=== PATIENT | male | born 1945 | race Caucasian/White ===

== ENCOUNTER → 2017-02-01 | Day surgery (SDC) | payer OTHER ==
[2017-01-28 10:38] LABS: Basophils # (auto) 0.1 uL; Basophils % (auto) 0.8 % (0.0-2.0); CONDITION Y; Eosinophils # (auto) 0.2 uL; Eosinophils % (auto) 2.4 % (0.0-7.0); Hematocrit 38.6 % (41.0-53.0); Hemoglobin 12.8 g/dL (13.5-17.5); Lymphocytes % (auto) 27.6 % (10.0-50.0); Mean Corpuscular Hemoglobin 29.8 pg (28.0-32.0); Mean Corpuscular Volume 90.2 fL (80.0-100.0); Mean Platelet Volume 10.9 fL (7.4-10.4); Monocytes # (auto) 0.5 uL; Monocytes % (auto) 6.3 % (0.0-12.0); Neutrophils # (auto) 4.5 uL; Neutrophils % (auto) 62.9 % (37.0-80.0); Platelet Count (auto) 229 10^3/uL (140-450); Red Cell Distribution Width 16.8 % (11.6-16.0); White Blood Cell 7.2 10^3/uL (4.4-10.8)
[2017-01-28 10:41] LABS: Urine Bilirubin Negative (Negative); Urine Blood Negative /uL (Negative); Urine Color Yellow (Yellow); Urine Glucose Normal (Normal); Urine Ketone Negative (Negative); Urine Mucus FEW (None Seen); Urine Nitrite Negative (Negative); Urine RBC 1 /hpf (0 - 3); Urine Urobilinogen Normal (Negative); Urine pH 5.5 (5.0-8.0)
[2017-01-28 10:51] LABS: INR 0.87 (0.9-1.15); Partial Thromboplastin Time 28.4 sec (22.64-33.71); Prothrombin Time 9.5 sec (9.37-12.3)
[2017-01-28 10:53] LABS: BUN/Creatinine Ratio 20.6; Calcium 8.9 mg/dL (8.5-10.1); Potassium 3.6 mmol/L (3.5-5.1)
[~2017-02-01] VITALS: Ht 175.3 cm; Wt 108.9 kg
[~2017-02-01] MED LIST: DEXAMETHASONE SOD PHOS 10MG/1ML VIAL INJ ONE; GLYCOPYRROLATE 0.2 MG/ML 1ML VIAL ONE; METHYLENE BLUE 0.5% 5MG/ML 10ml AMP IV ONE; METOCLOPRAMIDE HCL 5MG/ml INJ 2ml VIAL ONE; MIDAZOLAM HCL 1MG/1ML-2 ML VIAL ONE; MORPHINE SULF INJ 2 MG/ML SYRINGE 1ML IV PRN; NEOSTIGMINE 1 MG/ML INJ (10mg/10ML VIAL) ONE; ONDANSETRON HCL 4 MG/2 ML VIAL IV ONE; ONDANSETRON HCL 4 MG/2 ML VIAL ONE; PROPOFOL 10 MG/ML 20 ML IV ONE; ROCURONIUM 10MG/ML 10ML VIAL IV ONE; ceFAZolin 1GM VL ONE; ceFAZolin 1GM/50ML D5W 50 ML IV ONE; fentaNYL CITRATE 100 MCG/2 ML VL IV PRN; fentaNYL CITRATE 100 MCG/2 ML VL ONE; hydrALAZINE HCL 20 MG/ML VL IV PRN
[2017-02-01 17:45] VITALS: BP 152/92
== END | disposition home or self-care (01) ==
LOC: SUR 11:57
PROVIDERS: ATTEND Urology
DX: N40.1 Benign prostatic hyperplasia with lower urinary tract symptoms (principal)
CPT/HCPCS: 36415; 52601; 80048; 81001; 85025; 85610; 85730; 87086; J0690; J1100; J2250; J2405; J2704; J2765; J3010; Q9968

== ENCOUNTER 2023-03-22 06:15 | Inpatient (IN) | payer OTHER ==
[~2023-03-22] VITALS: Ht 167.6 cm; Wt 94.5 kg
[2023-03-22] VITALS (8 sets, daily range): BP systolic 97–127; BP diastolic 52–75; PULSE 64–82; RESP 10–18; TEMP 97.8–98.2; O2SAT 96–100
[~2023-03-22 06:15] MED LIST changes: +AMLO1TAB21 PO; -DEXAMETHASONE SOD PHOS 10MG/1ML VIAL INJ ONE; -GLYCOPYRROLATE 0.2 MG/ML 1ML VIAL ONE; -METHYLENE BLUE 0.5% 5MG/ML 10ml AMP IV ONE; -METOCLOPRAMIDE HCL 5MG/ml INJ 2ml VIAL ONE; -MIDAZOLAM HCL 1MG/1ML-2 ML VIAL ONE; -MORPHINE SULF INJ 2 MG/ML SYRINGE 1ML IV PRN; -NEOSTIGMINE 1 MG/ML INJ (10mg/10ML VIAL) ONE; -ONDANSETRON HCL 4 MG/2 ML VIAL IV ONE; -ONDANSETRON HCL 4 MG/2 ML VIAL ONE; -PROPOFOL 10 MG/ML 20 ML IV ONE; -ROCURONIUM 10MG/ML 10ML VIAL IV ONE; -ceFAZolin 1GM VL ONE; -ceFAZolin 1GM/50ML D5W 50 ML IV ONE; -fentaNYL CITRATE 100 MCG/2 ML VL IV PRN; -fentaNYL CITRATE 100 MCG/2 ML VL ONE; -hydrALAZINE HCL 20 MG/ML VL IV PRN
[2023-03-22] MEDS ORDERED: MIDAZOLAM HCL 2MG/2ML 2ml VIAL (1mg/ml) ONE (07:42)
[2023-03-22] MEDS ORDERED: fentaNYL CITRATE 5 ML ONE (07:42)
[2023-03-22] MEDS ORDERED: ONDANSETRON HCL 4 MG/2 ML VIAL ONE (08:26)
[2023-03-22] MEDS ORDERED: LIDOCAINE 2% (LOCAL ANESTH.) PF 5ml SDV ONE (08:26)
[2023-03-22] MEDS ORDERED: GLYCOPYRROLATE 0.2 MG/ML 1ML VIAL ONE (08:27)
[2023-03-22] MEDS ORDERED: PROPOFOL 10 MG/ML 20 ML IV ONE (08:27)
[2023-03-22] MEDS ORDERED: ROCURONIUM 10MG/ML 10ML VIAL IV ONE (08:27)
[2023-03-22] MEDS ORDERED: ePHEDrine SULFATE 50 MG/ML AMP IV PRN (09:00)
[2023-03-22] MEDS ORDERED: HYDROmorphone HCL 2 MG/ML VL/or syr IV PRN (09:00)
[2023-03-22] MEDS ORDERED: ONDANSETRON HCL 4 MG/2 ML VIAL IV PRN ×2 (09:00→18:00)
[2023-03-22] MEDS ORDERED: NITROGLYCERIN 0.4 MG SL TAB SL PRN ×2 (10:15→18:00)
[2023-03-22] MEDS ORDERED: MORPHINE SULFATE INJ 2 MG/ml SYRG IV PRN ×2 (10:15→18:00)
[2023-03-22] MEDS ORDERED: SUCCINYLCHOLINE CHLORIDE 20 MG/ML 10ML VIAL IV ONE (11:28)
[2023-03-22 12:22] LABS: Basophils # (auto) 0.1 10 ^3/uL (0-0.2); Basophils % (auto) 1.1 % (0.0-2.0); Eosinophils # (auto) 0.2 10 ^3/uL (0-0.8); Eosinophils % (auto) 2.5 % (0.0-7.0); Hemoglobin 12.9 g/dL (13.5-17.5); Mean Corpuscular Hemoglobin 29.5 pg (28.0-32.0); Mean Corpuscular Hgb Conc. 33.1 g/dL (32.0-36.0); Mean Corpuscular Volume 89.2 fL (80.0-100.0); Monocytes # (auto) 0.7 10 ^3/uL (0-1.3); Monocytes % (auto) 9.3 % (0.0-12.0); Neutrophils # (auto) 4.5 10 ^3/uL (1.6-8.6); Neutrophils % (auto) 60.1 % (37.0-80.0); Nucleated Red Blood Cells % 0.1 %; Red Blood Cells 4.37 10^6/uL (4.5-5.90); Red Cell Distribution Width 14.4 % (11.8-14.3); White Blood Cell 7.5 10^3/uL (4.4-10.8)
[2023-03-22] MEDS ORDERED: CIPR500T4 PO (15:19)
[2023-03-22] MEDS ORDERED: AMLO1TAB21 PO (15:28)
[2023-03-22] MEDS ORDERED: hydrALAZINE HCL 20 MG/ML VL IV PRN (18:00)
[2023-03-22] MEDS: cefTRIAXone 1GM/50ML D5W 50 ML IV SCH (18:01)
[2023-03-23] VITALS (13 sets, daily range): BP systolic 100–132; BP diastolic 43–73; PULSE 63–80; RESP 12–15; TEMP 97.6–99.1; O2SAT 63–99
[2023-03-23 05:33] LABS: Basophils # (auto) 0.1 10 ^3/uL (0-0.2); Basophils % (auto) 0.9 % (0.0-2.0); Eosinophils # (auto) 0.3 10 ^3/uL (0-0.8); Eosinophils % (auto) 2.2 % (0.0-7.0); Hematocrit 30.3 % (41.0-53.0); Hemoglobin 9.9 g/dL (13.5-17.5); Lymphocytes # (auto) 0.8 10 ^3/uL (0.4-5.4); Lymphocytes % (auto) 6.8 % (10.0-50.0); Mean Corpuscular Hemoglobin 29.1 pg (28.0-32.0); Mean Corpuscular Hgb Conc. 32.8 g/dL (32.0-36.0); Mean Corpuscular Volume 88.7 fL (80.0-100.0); Monocytes # (auto) 0.7 10 ^3/uL (0-1.3); Neutrophils # (auto) 10.2 10 ^3/uL (1.6-8.6); Neutrophils % (auto) 84.1 % (37.0-80.0); Red Blood Cells 3.41 10^6/uL (4.5-5.90); Red Cell Distribution Width 14.2 % (11.8-14.3); White Blood Cell 12.1 10^3/uL (4.4-10.8)
[2023-03-23 05:38] LABS: Chloride 109 mmol/L (98-107); Potassium 4.1 mmol/L (3.5-5.1); Sodium 141 mmol/L (136-145)
[2023-03-23 05:39] LABS: Anion Gap 3 (5-15); Calcium 8.2 mg/dL (8.7-10.4); Carbon Dioxide 29 mmol/L (20-30)
[2023-03-23 05:44] LABS: BUN/Creatinine Ratio 17.1 (10.0-20.0); Blood Urea Nitrogen 21 mg/dL (9-23); Glucose 106 mg/dL (74-106)
[2023-03-23] MEDS: cefTRIAXone 1GM/50ML D5W 50 ML IV SCH (09:03)
[2023-03-23] MEDS: DOCUSATE SOD 100 MG CAP PO PRN (09:03)
[2023-03-23] MEDS ORDERED: HYDROcodone-ACET 5/325MG TAB PO PRN (12:30)
[2023-03-24] VITALS (16 sets, daily range): BP systolic 111–148; BP diastolic 56–84; PULSE 58–80; RESP 11–19; TEMP 98.3–99; O2SAT 95–100
[2023-03-24 05:14] LABS: Basophils # (auto) 0.1 10 ^3/uL (0-0.2); Basophils % (auto) 0.4 % (0.0-2.0); Eosinophils # (auto) 0.4 10 ^3/uL (0-0.8); Eosinophils % (auto) 3.5 % (0.0-7.0); Hematocrit 30.1 % (41.0-53.0); Hemoglobin 9.4 g/dL (13.5-17.5); Lymphocytes # (auto) 0.9 10 ^3/uL (0.4-5.4); Lymphocytes % (auto) 7.5 % (10.0-50.0); Mean Corpuscular Hemoglobin 29.2 pg (28.0-32.0); Mean Corpuscular Hgb Conc. 31.4 g/dL (32.0-36.0); Mean Corpuscular Volume 93.1 fL (80.0-100.0); Monocytes # (auto) 0.9 10 ^3/uL (0-1.3); Monocytes % (auto) 7.9 % (0.0-12.0); Neutrophils # (auto) 9.4 10 ^3/uL (1.6-8.6); Neutrophils % (auto) 80.7 % (37.0-80.0); Red Blood Cells 3.23 10^6/uL (4.5-5.90); Red Cell Distribution Width 14.9 % (11.8-14.3); White Blood Cell 11.7 10^3/uL (4.4-10.8)
[2023-03-24] MEDS: cefTRIAXone 1GM/50ML D5W 50 ML IV SCH (08:00)
[2023-03-24] MEDS: DOCUSATE SOD 100 MG CAP PO PRN (08:00)
[2023-03-24] MEDS ORDERED: LACTULOSE 20Gm/30ML SOLN PO SCH (10:00)
[2023-03-24] MEDS ORDERED: LACTULOSE 20Gm/30ML SOLN PO PRN (10:15)
[2023-03-24] MEDS: TROLAMINE SALICYLATE 10% TOP CREAM TOP PRN (17:16)
[2023-03-25] VITALS (10 sets, daily range): BP systolic 115–160; BP diastolic 22–76; PULSE 62–83; RESP 12–22; TEMP 98.7–99; O2SAT 97–100
[2023-03-25] MEDS: TROLAMINE SALICYLATE 10% TOP CREAM TOP PRN (03:07)
[2023-03-25 05:12] LABS: Chloride 110 mmol/L (98-107); Potassium 3.6 mmol/L (3.5-5.1); Sodium 142 mmol/L (136-145)
[2023-03-25 05:13] LABS: Anion Gap 5 (5-15); Carbon Dioxide 27 mmol/L (20-30)
[2023-03-25 05:14] LABS: Calcium 8.3 mg/dL (8.7-10.4)
[2023-03-25 05:18] LABS: Glucose 91 mg/dL (74-106)
[2023-03-25 05:19] LABS: BUN/Creatinine Ratio 13.2 (10.0-20.0); Blood Urea Nitrogen 12 mg/dL (9-23); Hematocrit 29.3 % (41.0-53.0); Hemoglobin 9.6 g/dL (13.5-17.5)
[2023-03-25] MEDS: cefTRIAXone 1GM/50ML D5W 50 ML IV SCH (09:28)
== END 2023-03-25 17:30 | disposition home health service (06) | DRG 714 ==
LOC: SUR 06:15 → OVERFLOW 10:08 → OBSVTOIN 13:51 → EAST 13:54 → DOU IN ICU 16:15
PROVIDERS: ADMIT Nurse Practitioner Family; ATTEND Urology
PROC: 0VT08ZZ Resection of Prostate, Via Natural or Artificial Opening Endoscopic (ICD-10-PCS; principal; 2023-03-22 07:43)
DX: N40.1 Benign prostatic hyperplasia with lower urinary tract symptoms (principal); I11.9 Hypertensive heart disease without heart failure; K59.00 Constipation, unspecified; R31.0 Gross hematuria; R33.8 Other retention of urine; Z90.79 Acquired absence of other genital organ(s); Z82.49 Family history of ischemic heart disease and other diseases of the circulatory system
CPT/HCPCS: 36415; 80048; 85014; 85018; 85025; 87081; 97110; 97163; G0378; J0330; J0696; J2001; J2250; J2405; J2704